=== PATIENT | female | born 1945 | race Caucasian/White ===

== ENCOUNTER 2017-10-12 20:14 | Emergency (ER) | payer MEDICARE, BC ==
[2017-10-12 20:45] VITALS: BP 117/64
[2017-10-12] MEDS ORDERED: Albuterol HFA INHALER* 8 gm MDI INH ONE (21:18)
[2017-10-12] MEDS ORDERED: predniSONE TAB* 20 MG PO ONE (21:18)
--- NOTE | 2017-10-12 21:18 | UC ---
Respiratory Complaint HPI - HPI Summary HPI Summary: C/O sore throat first which has resolved. Now with coughing fits and fullness in the ears. No fevers or chills. - History of Current Complaint Chief Complaint: UCGeneralIllness Stated Complaint: COUGH/EARS PLUGGED Time Seen by Provider: 10/12/17 21:10 Hx Obtained From: Patient Onset/Duration: Gradual Onset, Lasting Weeks - 1 1/2 weeks., Still Present Timing: Constant Severity Initially: Mild Severity Currently: Moderate Pain Intensity: 0 Character: Cough: Nonproductive Associated Signs And Symptoms: Positive: Dyspnea, URI, Nasal Congestion, Hoarseness. Negative: Fever, Chills, Sinus Discomfort - Allergies/Home Medications Allergies/Adverse Reactions: Allergies Allergy/AdvReac Type Severity Reaction Status Date / Time No Known Allergies Allergy Verified 10/12/17 20:33 Home Medications: Home Medications Acetaminophen TAB* [Tylenol TAB*] 650 mg PO Q4H PRN 10/12/17 [History Confirmed 10/12/17] Apixaban* [Eliquis] 2.5 mg PO BID 10/12/17 [History Confirmed 10/12/17] Dm/PE/Acetaminophen/Doxylamine [[place] Plus Allerg-Cough] 1 cap PO ONCE PRN 10/12/17 [History Confirmed 10/12/17] Multivitamin [Multivitamins] 1 cap PO DAILY 10/12/17 [History Confirmed 10/12/17 ] Vitamin E CAP* 400 unit PO DAILY 10/12/17 [History Confirmed 10/12/17] PMH/Surg Hx/FS Hx/Imm Hx Cardiovascular History: Deep Vein Thrombosis Respiratory History: Pneumonia - Surgical History Surgical History: Yes Surgery Procedure, Year, and Place: Mastectomy. Breast Reconstruction Sx. Cholecystomy. Tonsilectomy - Family History Known Family History: Positive: Cardiac Disease, Diabetes - Social History Occupation: Retired Lives: Alone Alcohol Use: Weekly Substance Use Type: None Smoking Status (MU): Never Smoked Tobacco Review of Systems ENT: Sore Throat, Ear Ache - fullness Respiratory: Shortness Of Breath, Cough Is Patient Immunocompromised?: No All Other Systems Reviewed And Are Negative: Yes Physical Exam Triage Information Reviewed: Yes Appearance: No Pain Distress, Well-Nourished, Ill-Appearing - mild Vital Signs: Initial Vital Signs Temp 98.2 F 10/12/17 20:36 Pulse 86 10/12/17 20:36 Resp 16 10/12/17 20:36 BP 117/64 10/12/17 20:36 Pulse Ox 96 10/12/17 20:36 Vital Signs Reviewed: Yes Eyes: Positive: Conjunctiva Clear ENT: Positive: Pharynx normal, Nasal congestion, TMs normal - but retracted. Neck exam: Normal Respiratory: Positive: Wheezing - expiratory wheezing with coughing. Cardiovascular Exam: Normal Musculoskeletal Exam: Normal Neurological Exam: Normal Psychological Exam: Normal Skin Exam: Normal UC Diagnostic Evaluation - Laboratory O2 Sat by Pulse Oximetry: 96 Respiratory Course/Dx - Differential Dx/Diagnosis Differential Diagnosis/HQI/PQRI: Asthma, Exacerbation Of COPD, Lower Resp Infection Provider Diagnoses: Acute URI. Acute bronchospasm Discharge - Sign-Out/Discharge Documenting (check all that apply): Patient Departure All imaging exams completed and their final reports reviewed: No Studies - Discharge Plan Condition: Stable Disposition: HOME Prescriptions: predniSONE TAB* [Deltasone 20 MG TAB*] 20 mg PO DAILY #18 tab Patient Education Materials: Bronchospasm (ED), Prednisone (By mouth), How to Use a Metered-Dose Inhaler and a Spacer (ED) Referrals: No Primary Care Phys,NOPCP [Primary Care Provider] - Additional Instructions: NASAL SPRAYS AND DROPS: Afrin in the PUMP/ MIST bottle (Get generic 12 hours nasal decongestant spray). Tilt your head down and look at the floor while doing a strong sniff with the spray. Decongestant nasal sprays and drops often give dramatic relief from congestion. They are often recommended for patients with sinus infection to assist with sinus drainage. Persons with high blood pressure should consult the doctor before using these nasal sprays. Afrin and Joao-Synephrine are common [id number] preparations. They should not be used for more than five days, as "rebound" congestion can occur - - the congestion flares as the drug wears off. A way of dealing with this rebound congestion problem is to medicate only one nostril each time, allowing the other nostril to recover from the medicine' s effects. When you no longer need the drug during the day, spray only one nostril each night. This helps you sleep well without severe rebound congestion. Call the doctor if you develop severe headache, palpitations, or chest pain. - Billing Disposition and Condition Condition: STABLE Disposition: Home
[2017-10-12] MEDS ORDERED: predniSONE TAB* 20 MG ONE (21:32)
[2017-10-12] MEDS ORDERED: predniSONE TAB* 10 MG ONE (21:32)
== END 2017-10-12 21:41 | disposition home or self-care (01) ==
LOC: UCCORT 20:14
DX: J06.9 Acute upper respiratory infection, unspecified (principal); J98.01 Acute bronchospasm; Z87.01 Personal history of pneumonia (recurrent)
CPT/HCPCS: 99202; A9270-GY; G0463; J7512